=== PATIENT | female | born 1955 | race Hispanic/Latino ===

== ENCOUNTER 2023-08-20 08:44 | Emergency (ER) | payer OTHER ==
--- OUTSIDE RECORDS SUMMARY | 2023-08-20 08:46 | XMS REPORT | Continuity of Care Document ---
Author Name Unknown Address [address] [facility] [address] [place] [address] [facility] Address [address] [facility] [address] [place] [address] Care Team Providers Care Cyber Ops Planner Name Role Phone Unavailable Unavailable Unavailable Encounters Start Date/Time End Date/Time Encounter Type Admission Type Attending Clinicians Care Facility Care Department Encounter ID Source 2022-08-27 09:18:09 2022-08-27 09:18:09 Outpatient [facility] [id number] Saad Teixeira 2022-08-17 15:01:18 2022-08-17 15:01:18 Outpatient [facility] [id number] Saad Teixeira 2022-06-18 10:55:35 2022-06-18 10:55:35 Outpatient [facility] [id number] Saad Morris Puneet 2022-06-15 09:12:26 2022-06-15 09:12:26 Outpatient [facility] [id number] Saad Teixeira 2022-06-07 13:04:46 2022-06-07 13:04:46 Outpatient [facility] [id number] Saad Teixeira 2022-05-31 10:36:52 2022-05-31 10:36:52 Outpatient [facility] [id number] Saad Morris Puneet 2022-05-28 08:57:19 2022-05-28 08:57:19 Outpatient [facility] [id number] Saad Teixeira 2022-05-22 10:51:10 2022-05-22 10:51:10 Outpatient [facility] [id number] Saad Teixeira Results Test Description Test Time Test Comments Results Result Co mments Source PAP TEST, THINPREP, [id number] 10:11:01* Test Item Value Reference Range Interpretation Comme nts SOURCE: (test code = 8001) Cervical/Endo cervical SLIDES: (test code = 8011) 1 LMP: (test code = 8021) SEE NOTE POST MENOPAUSAL SPECIMEN ADEQUACY: (test code = 02914) (NOTE) Satisfactory for evaluation. Endocervical cells/transformation zone component not identified. INTERPRETATION: (test code = 87656) NILM/NO EPITH. ABNORMALITY;S EE BELOW ---- NEGATIVE FOR INTRAEPITHELIAL LESION OR MALIGNANCY (NILM) - GAMBRELER HELPER: (test code = 8101) [facility] IAC LOCATION: (test code = 14615) (NOTE) Specimens proces sed and interpreted at [facility], [address] [place] [address], , CLIA: [id number] CPT: (test code = 8140) (NOTE) 50919 UNLESS OTH ERWISE INDICATED, COMPUTER AIDED AND GAMBRELER HELPER SCREENING PERFORMED. The Pap test is a screening test with an inherent, but low probability of error. Your patient should be reminded to consult you immediately if she experiences any suspicious signs or symptoms, regardless of her Pap test result. An alternate report format containing images or consolidated prior Pap history is available as applicable. HPV HIGH RISK WITH GENOTYPE, [id number] 10:00:59* Test Item Value Reference Range Interpretation Comme nts HPV HIGH RISK INTERP (test code = 60151) NEGATIVE NEGATIVE HPV 16 (test code = 40741) NEGATIVE HPV 18 (test code = 67089) NEGATIVE HPV, HR, OTHER GENOTYPES (test code = 52290) NEGATIVE Testing methodol ogy is real-time PCR utilizing hydrolysis probes with the Joshua Amparo 4800 system. The test individually detects genotypes 16 and 18, as well as the other 12 high risk types (31,33,35,39,45,51,52,56 ,58,59,66,68). The expected result is negative. A negative result does not rule out the presence of HPV not included in the genotype set, a low level of infection or specimen sampling error. CT/NG, NAAT, [id number] 22:16:37* Test Item Value Reference Range Interpretation Comme nts GONORRHEA, NAAT (test code = 32941) NEGATIVE NEGATIVE Testing is perfo rmed with Joshua AMPARO 6800/8800 systems usingreal-time polymerase chain reaction (PCR) method. A negative result does not exclude low level infection, specimensampling error, or collection error. CHLAMYDIA, NAAT (test code = 88217) NEGATIVE NEGATIVE Testing is perfo rmed with Joshua AMPARO 6800/8800 systems usingreal-time polymerase chain reaction (PCR) method. A negative result does not exclude low level infection, specimensampling error, or collection error. TRICHOMONAS, [id number] 14:19:13* Test Item Value Reference Range Interpretation Comme nts TRICHOMONAS, NAAT (test code = 42165) NEGATIVE NEGATIVE A negative r esult does not exclude low level infection, specimensampling error, or collection error. SPECIMEN TYPE (test code = 80414) THINPREP Testing is perfo rmed with the Joshua Amparo 6800/8800 systems usingreal-time Polymerase Chain Reaction (PCR) method. [facility] has important pathology staff changes effective 06/13/2022. New pathology staff will provide uninterrupted, excellent patient care and clinical consultation. See URL: [email or web address]. UNLESS OTHERWISE INDICATED, ALL TESTING PERFORMED AT [facility] [address] [place] [address] CLIA: [id number], CAP: [id number] HIV 1/2 4TH GEN, RFLX [id number] 04:50:37* Test Item Value Reference Range Interpretation Comme nts HIV 1/2 4TH GEN, RFLX CONF ( test code = 3514) NON-REACTIVE NON-REACTIVE HEPATITIS PANEL, [id number] 04:50:37* Test Item Value Reference Range Interpretation Comme nts HEPATITIS A IgM (test code = 69910) NON-REACTIVE NON-REACTIVE HEPATITIS B CORE IgM (test code = 4644) NON-REACTIVE NON-REACTIVE HEPATITIS B SURF AG (test code = 2739) NON-REACTIVE NON-REACTIVE HEPATITIS C ANTIBODY (test code = 4675) NON-REACTIVE NON-REACTIVE INTERPRETATION HEPATITIS A: (test code = 2552) (NOTE) Hepatitis A serology shows no evidence of acute hepatitis A. INTERPRETATION HEPATITIS B: (test code = 48607) (NOTE) Hepatitis B serology shows no evidence of acute hepatitis B andno indication of exposure to hepatitis B virus in the previous elizabeth eight months. INTERPRETATION HEPATITIS C: (test code = 92082) (NOTE) Hepatitis C serology shows no evidence of exposure to hepatitisC virus at this time. It can take up to 12 months after exposure tothe hepatitis C virus for antibodies to become detectable in the blood in certain patients. [id number] 04:07:05* Test Item Value Reference Range Interpretation Comme nts RPR RESULT (test code = 3501) NON-REACTIVE NON-REACTIVE RPR TITER (test code = 3500) NOT INDIC. TITER NOT INDIC. [facility] has important pathology staff changes effective 06/13/2022. New pathology staff will provide uninterrupted, excellent patient care and clinical consultation. See URL: [email or web address]. UNLESS OTHERWISE INDICATED, ALL TESTING PERFORMED AT [facility] [address] [place] [address] CLIA: [id number], CAP: [id number]
--- NOTE | 2023-08-20 09:02 | ER ---
Nurse's Notes [facility] Name: Deena Jang Age: 68 yrs Sex: Female : 1955 Arrival Date: 08/20/2023 Time: 08:44 Bed IW1 Private MD: Diagnosis: Cutaneous abscess of back [any part, except buttock] Presentation: 08/19 08:54 Chief complaint: Patient states: she has an abscess for approx 8 days that has been ap3 draining on her mid upper back. patient also reports fevers and chills during this time. Coronavirus screen: At this time, the client does not indicate any symptoms associated with coronavirus-19. Ebola Screen: No symptoms or risks identified at this time. Initial Sepsis Screen: Does the patient meet any 2 criteria? No. Patient's initial sepsis screen is negative. Does the patient have a suspected source of infection? No. Patient's initial sepsis screen is negative. Risk Assessment: Do you want to hurt yourself or someone else? Patient reports no desire to harm self or others. Onset of symptoms is unknown. 08:54 Method Of Arrival: Ambulatory ap3 08:54 Acuity: ROBY 4 ap3 Triage Assessment: 08:56 General: Appears uncomfortable, Behavior is calm, cooperative, appropriate for age. ap3 Pain: Complains of pain in back. Neuro: Level of Consciousness is awake, alert, obeys commands, Oriented to person, place, time, situation. Cardiovascular: Patient's skin is warm and dry. Respiratory: Airway is patent Respiratory effort is even, unlabored, Respiratory pattern is regular, symmetrical. Derm: Abscess located on thoracic area. Historical: - Allergies: 08:56 Morphine; ap3 - Home Meds: 08:56 None [Active]; ap3 - PMHx: 08:56 None; ap3 - PSHx: 08:56 foot; ap3 - Immunization history:: Adult Immunizations up to date. - Infectious Disease History:: Denies. - Social history:: Smoking status: unknown. Screenin:57 Abuse screen: Denies threats or abuse. Nutritional screening: No deficits noted. ap3 Tuberculosis screening: No symptoms or risk factors identified. 09:12 [facility] ED Fall Risk Assessment (Adult) History of falling in the last 3 months, ap3 including since admission No falls in past 3 months (0 pts) Confusion or Disorientation No (0 pts) Intoxicated or Sedated No (0 pts) Impaired Gait No (0 pts) Mobility Assist Device Used No (0 pt) Altered Elimination No (0 pt) Score/Fall Risk Level 0 - 2 = Low Risk Oriented to surroundings, Maintained a safe environment, Educated pt \T\ family on fall prevention, incl call for assistance when getting out of bed, Assessed \T\ reinforced patient's understanding of fall precautions, Provided non-skid footwear, Hourly rounding (assess needs \T\ fall precautionary measures) done, Used ambulatory aids as needed (educated on \T\ assisted with), Used gait belt as appropriate. Vital Signs: 08:54 BP 137 / 67; Pulse 72; Resp 18; Pulse Ox 97% ; Weight 72.57 kg; Height 4 ft. 11 in. ; ap3 08:54 Body Mass Index 32.32 (72.57 kg, 149.86 cm) ap3 ED Course: 08:47 Patient arrived in ED. im 08:48 Lennox Hamm MD is Attending Physician. ec2 08:56 Triage completed. ap3 08:57 Arm band placed on left wrist. ap3 08:57 Patient has correct armband on for positive identification. Bed in low position. Call ap3 light in reach. Side rails up X 1. Adult w/ patient. Provided Education on: wound care. Pulse ox on. NIBP on. 09:11 No provider procedures requiring assistance completed. Patient did not have IV access ap3 during this emergency room visit. Administered Medications: No medications were administered Medication: 09:12 VIS not applicable for this client. ap3 Outcome: 09:02 Discharge ordered by . ec2 09:12 Discharged to home ambulatory, ap3 09:12 Condition: good 09:12 Discharge instructions given to patient, Instructed on discharge instructions, follow up and referral plans. Demonstrated understanding of instructions, follow-up care, medications, Prescriptions given X 1, 09:12 Patient left the ED. ap3 Signatures: Carol Randle RN RN ap3 Meli Fuentes Lennox Hamm MD MD ec2
--- NOTE | 2023-08-20 09:02 | EDPHYS ---
Physician Documentation [facility] Name: Deena Jang Age: 68 yrs Sex: Female : 1955 Arrival Date: 08/20/2023 Time: 08:44 Bed IW1 Private MD: ED Physician Lennox Hamm HPI: 08/19 09:03 This 68 yrs old Female presents to ER via Ambulatory with complaints of ec2 Abscess - on back. 09:03 Patient arrives today due to concern for drainage from her right mid upper back. ec2 Patient reports that she has been having some drainage from that area. Patient is concerned about an abscess. Patient reports no systemic symptoms, denies any fevers or chills, nausea or vomiting.. Historical: - Allergies: 08:56 Morphine; ap3 - Home Meds: 08:56 None [Active]; ap3 - PMHx: 08:56 None; ap3 - PSHx: 08:56 foot; ap3 - Immunization history:: Adult Immunizations up to date. - Infectious Disease History:: Denies. - Social history:: Smoking status: unknown. ROS: 09:03 Constitutional: as per hpi ec2 Exam: 09:03 Constitutional: GEN: NAD Head: atraumatic Eyes: EOMI Ears: External ears are ec2 normal. CV: regular rate LUNGS: no respiratory distress ABD: non-distended SKIN: Large abscess present to the right upper back. Open, drainage noted. MSK: no evidence of trauma NEURO: moves all extremities equally Vital Signs: 08:54 BP 137 / 67; Pulse 72; Resp 18; Pulse Ox 97% ; Weight 72.57 kg; Height 4 ft. 11 in. ; ap3 08:54 Body Mass Index 32.32 (72.57 kg, 149.86 cm) ap3 MDM: 08:48 Patient medically screened. ec2 09:03 Data reviewed: vital signs. ED course: Patient arrives today due to concern for abscess ec2 to the right upper back. Examination remarkable for abscess as noted above. I was able to express significant amount of pus from the area. Patient otherwise systemically well-appearing in no acute distress with reassuring hemodynamics. Will forego obtaining any lab work such as CBC or BMP. Additionally doubt deep space infection, will defer any CT imaging. Will start patient on Bactrim, have the patient follow-up primary care doctor and return as needed.. Administered Medications: No medications were administered Disposition Summary: 08/20/23 09:02 Discharge Ordered Notes: Location: Home ec2 Condition: Stable ec2 Diagnosis - Cutaneous abscess of back [any part, except buttock] ec2 Followup: ec2 - With: Private Physician - When: - Reason: Recheck today's complaints Discharge Instructions: - Discharge Summary Sheet ec2 - Skin Abscess, [id number] ec2 Forms: - Medication Reconciliation Form ec2 - Antibiotic Education ec2 - Prescription Opioid Use ec2 - Patient Portal Instructions ec2 - Leadership Thank You Letter ec2 Prescriptions: - Bactrim DS 800-160 mg Oral Tablet - take 1 tablet ORAL route every 12 hours for 7 days; 14 tablet; Refills: 0, ec2 Product Selection Permitted Signatures: Carol Randle RN RN ap3 Lennox Hamm MD MD ec2
[2023-08-20 09:27] VITALS: BP 137/67; O2SAT 97
== END 2023-08-20 09:12 | disposition home or self-care (01) ==
LOC: ER 08:44
DX: L02.212 Cutaneous abscess of back [any part, except buttock and flank] (principal); Z88.5 Allergy status to narcotic agent

== ENCOUNTER 2024-11-11 14:52 | Inpatient (IN) | payer OTHER ==
[2024-11-11] MEDS ORDERED: ONDANSETRON 4 MG/2 ML VIAL ONE (15:18)
[2024-11-11] MEDS ORDERED: NA CHLORIDE 0.9% 1,000 ML ONE (15:18)
[2024-11-11 15:39] LABS: Absolute Lymphocytes (CBC) 0.5 K/uL (0.7-4.9); Hematocrit 45.4 % (36.0-45.0); Hemoglobin 15.5 g/dL (12.0-15.0); MCH 29.9 pg (27.0-35.0); MCHC 34.2 g/dL (32.0-36.0); MCV 87.6 fL (80-100); MPV 10.4 fL (7.6-11.3); Nucleated RBC Absolute Count 0.0 (0-0); Nucleated Red Blood Cells % 0.0 % (0-0); RBC Red Blood Cell Count 5.19 M/uL (3.86-4.86); White Blood Count 13.10 thou/uL (4.3-10.9)
[2024-11-11 15:46] LABS: SARS-CoV-2 Antigen Rapid Res Negative (Negative)
[2024-11-11 15:56] LABS: ALT/SGPT 149.0 U/L (13-56); AST/SGOT 271.0 U/L (15-37); Albumin 2.9 g/dL (3.4-5.0); Albumin/Globulin Ratio 0.5 (1.1-1.8); Alkaline Phosphatase 138.0 U/L (45-117); Anion Gap 15.3 mEq/L (5.0-15.0); BUN Blood Urea Nitrogen 27.0 mg/dL (7-18); Globulin 5.5 g/dL (2.3-3.5); Glucose Level 152.0 mg/dL (74-106); Lipase 75.0 U/L (13-75); Potassium 3.3 mEq/L (3.5-5.1)
[2024-11-11 16:28] LABS: Blood Morphology Comment NOT SEEN (NOT SEEN); White Blood Cell Scan OK (OK)
--- NOTE | 2024-11-11 16:52 | RAD REPORT ---
EXAMINATION: US Abdomen Exam Limited CLINICAL HISTORY: [facility] MAIN Y ABD PAIN Bed Name: 13 COMPARISON: None. TECHNIQUE: Limited upper abdominal grayscale and color flow sonographic images. FINDINGS: Gallbladder: Gallbladder is somewhat decompressed limiting evaluation. Echogenic shadowing calculi pr edominantly at the neck. Wall appears mildly thickened, 4 mm in thickness. No pericholecystic fluid. Negative sonographic Owens sign. Bile ducts: No intrahepatic or extrahepatic biliary dilatation. Common bile duct measures 3 mm. Liver: Visualized portions of the liver demonstrate normal echogenicity with no suspicious findings. Fluid: No ascites. IMPRESSION: Cholelithiasis and mild wall thickening although suboptimal distention limits evaluation. No other fi ndings to suggest acute cholecystitis.
[2024-11-11 17:42] LABS: Urine Crystals Unidentified Few /HPF (None Seen); Urine Culture Reflex Order REFLEXED; Urine Microscopic Reflex YN ORDER UMIC; Urine WBC Clump Occasional /HPF (None Seen); Urine Yeast (Budding) Few /HPF (None Seen)
--- NOTE | 2024-11-11 17:54 | ER ---
Nurse's Notes [facility] Name: Deena Jang Age: 69 yrs Sex: Female : 1955 Arrival Date: 11/11/2024 Time: 14:52 Bed 13 Private MD: Diagnosis: Other cholelithiasis without obstruction;Acute cholecystitis;Abnormal results of liver function studies Presentation: 11/11 14:58 Chief complaint: EMS states: toned out for a patient that doesn't feel well. c/o me1 abdominal pain, n/v/d and fever. Daughter walked in room during triage and noticed a rash to torso that wasn't there captain of guards. Red, raised rash to torso and starting to go down thighs. Coronavirus screen: Vaccine status: Patient reports being unvaccinated. Ebola Screen: No symptoms or risks identified at this time. Initial Sepsis Screen: Does the patient meet any 2 criteria? HR > 90 bpm. Does the patient have a suspected source of infection? No. Patient's initial sepsis screen is negative. Risk Assessment: Do you want to hurt yourself or someone else? Patient reports no desire to harm self or others. Onset of symptoms is unknown. 14:58 Method Of Arrival: EMS: [facility] sd1 14:58 Acuity: ROBY 3 me1 Triage Assessment: 15:01 General: Appears in no apparent distress. Behavior is calm, cooperative, appropriate me1 for age. Pain: Complains of pain in abdomen Pain does not radiate. Pain currently is 6 out of 10 on a pain scale. Quality of pain is described as crampy, Pain began gradually, Is continuous. EENT: No signs and/or symptoms were reported regarding the EENT system. Neuro: Level of Consciousness is awake, alert, obeys commands, Oriented to person, place, time, situation, Appropriate for age. Cardiovascular: Patient's skin is warm and dry. Respiratory: Airway is patent Respiratory effort is even, unlabored, Respiratory pattern is regular, symmetrical. GI: Abdomen is non-distended, Reports lower abdominal pain, upper abdominal pain, diarrhea, nausea, vomiting. : No signs and/or symptoms were reported regarding the genitourinary system. Derm: Skin is healthy with good turgor, Skin is normal, Rash noted that is red, raised, on chest, abdomen and pelvis. Musculoskeletal: No signs and/or symptoms reported regarding the musculoskeletal system. Historical: - Allergies: 15:01 Morphine; me1 - PMHx: 15:01 None; me1 - PSHx: 15:01 foot; me1 - Immunization history:: Adult Immunizations unknown. - Infectious Disease History:: Denies. - Social history:: Smoking status: Patient denies any tobacco usage or history of. Screenin:04 [facility] ED Fall Risk Assessment (Adult) History of falling in the last 3 months, me1 including since admission No falls in past 3 months (0 pts) Confusion or Disorientation No (0 pts) Intoxicated or Sedated No (0 pts) Impaired Gait No (0 pts) Mobility Assist Device Used No (0 pt) Altered Elimination No (0 pt) Score/Fall Risk Level 0 - 2 = Low Risk Maintained a safe environment, Provided non-skid footwear, Hourly rounding (assess needs \T\ fall precautionary measures) done. Abuse screen: Denies threats or abuse. Nutritional screening: No deficits noted. Tuberculosis screening: No symptoms or risk factors identified. Assessment: 15:04 General: See triage assessment. me1 16:38 General: placed purewick to get urine specimen, Patient's periarea is red and painful me1 with pericare as she hasnt been able to get herself clean. Patient lives alone and has been bed bound due to weakness from this illness per her friend. . 19:01 Reassessment: Patient received in bed asking to go home, she is alert and oriented x2, tb4 denies pain 0/10. General: Appears comfortable, Behavior is calm, cooperative. Pain: Denies pain. Neuro: No deficits noted. Level of Consciousness is awake, alert, obeys commands, Oriented to person, place, Gas Pumper are equal bilaterally Moves all extremities. Full function Weakness in bilateral leg(s) Gait is unsteady, Speech is normal, Facial symmetry appears normal. Respiratory: No deficits noted. Airway is patent Trachea midline Respiratory effort is even, unlabored, Respiratory pattern is regular, symmetrical. GI: Bowel sounds present X 4 quads. Abd is soft X 4 quads Abd is non tender Reports nausea, vomiting. Vital Signs: 14:58 BP 119 / 68; Pulse 96; Resp 17; Temp 98.3; Pulse Ox 100% ; Weight 63.5 kg; Height 4 ft. me1 11 in. ; Pain 6/10; 15:00 BP 125 / 72; Pulse 95; Resp 15; Pulse Ox 99% ; me1 16:00 BP 133 / 55; Pulse 84; Resp 14; Pulse Ox 99% ; me1 17:00 BP 120 / 49; Pulse 81; Resp 16; Pulse Ox 99% ; me1 19:17 BP 125 / 64; Pulse 73; Resp 18; Temp 98.4; Pulse Ox 99% on R/A; Pain 0/10; tb4 19:30 BP 127 / 88; Pulse 76; Resp 19; Pulse Ox 97% on R/A; Pain 0/10; tb4 20:45 BP 128 / 74; Pulse 70; Resp 18; Pulse Ox 99% on R/A; Pain 0/10; tb4 14:58 Body Mass Index 28.28 (63.50 kg, 149.86 cm) me1 14:58 Pain Scale: Adult me1 19:17 Pain Scale: Adult tb4 19:30 Pain Scale: Adult tb4 20:45 Pain Scale: Adult tb4 ED Course: 14:54 Patient arrived in ED. me1 14:55 Ana Rehman FNP-C is PHCP. kb 14:55 Prashanth Worrell MD is Attending Physician. kb 15:01 Triage completed. me1 15:01 Arm band placed on Patient placed in an exam room. me1 15:04 Patient has correct armband on for positive identification. Bed in low position. Call [facility] light in reach. Side rails up X2. Provided Education on: POC. Verbalized understanding.. Client placed on continuous cardiac and pulse oximetry monitoring. NIBP monitoring applied. Pulse ox on. NIBP on. 15:04 No provider procedures requiring assistance completed. me1 15:16 Karla Rothman, RN is Primary Nurse. me1 15:28 Initial lab(s) drawn, by sd, sent to lab. Inserted saline lock: 22 gauge in right sd1 antecubital area, using aseptic technique. 15:29 CBC with Diff Sent. me1 15:29 CMP Sent. me1 15:29 Lipase Sent. me1 15:29 [place] Screen Profile Sent. me1 15:29 Group A Streptococcus Rapid Sent. me1 15:30 COVID swab sent to lab. Strep swab sent to lab. me1 16:18 US Abdomen Limited In Process Unspecified. EDMS 17:34 UA Rfx Devyn Cult if indicated Sent. me1 17:34 Urine collected: clean catch specimen, cloudy, tea colored. me1 17:54 Perez Rhoades MD is Hospitalizing Provider. kb 18:07 Blood Culture Adult (2) Sent. me1 18:07 Lactate w/ 2H reflex if indic. Sent. me1 19:17 Warm blanket given. tb4 Administered Medications: 15:29 Drug: Ondansetron IVP 4 mg IVP once; over 2 minutes Route: IVP; Site: right antecubital;me1 17:06 Follow up: Response: No adverse reaction; Nausea is decreased me1 15:29 Drug: NS 0.9% IV 1000 ml IV at 1 bolus Per protocol; to be given as a bolus over 60 me1 minutes Route: IV; Rate: 1 bolus; Site: right antecubital; 17:06 Follow up: Response: No adverse reaction; IV Status: Completed infusion; IV Intake: me1 1000ml 18:13 Drug: Piperacillin-Tazobactam IVPB 3.375 grams IVPB once over 60 mins; (mix in NS 100 me1 mL) Route: IVPB; Infused Over: 60 mins; Site: right antecubital; 19:07 Follow up: Response: No adverse reaction; IV Status: Completed infusion me1 Medication: 15:04 VIS not applicable for this client. me1 Intake: 17:06 IV: 1000ml; Total: 1000ml. me1 Outcome: 17:54 Decision to Hospitalize by Provider. kb 21:41 Patient left the ED. tb4 Signatures: Dispatcher [employer] Ana Singh, MIRYAM-C SAMPLE WORKER-Karla Tang, RN RN me1 Divina Campuzano, RN RN tb4
--- NOTE | 2024-11-11 17:54 | EDPHYS ---
Physician Documentation [facility] Name: Deena Jang Age: 69 yrs Sex: Female : 1955 Arrival Date: 11/11/2024 Time: 14:52 Bed 13 Private MD: ED Physician Prashanth Worrell HPI: 11/11 15:32 This 69 yrs old Female presents to ER via EMS with complaints of Abdominal kb Pain, Nausea/Vomiting/Diarrhea, Rash. 15:32 Pt is a 69 year old female who presents for diarrhea, fever, malaise, weakness, sore kb throat and bodyaches that started one week ago. States symptoms got worse today. Pt was seen here and given prescription for Augmentin, but symptoms aren't improving. . Historical: - Allergies: 15:01 Morphine; me1 - PMHx: 15:01 None; me1 - PSHx: 15:01 foot; me1 - Immunization history:: Adult Immunizations unknown. - Infectious Disease History:: Denies. - Social history:: Smoking status: Patient denies any tobacco usage or history of. ROS: 15:14 Constitutional: As per HPI kb Exam: 15:31 Constitutional: This is a well developed, well nourished patient who is awake, alert, kb and in no acute distress. Head/Face: Normocephalic, atraumatic. ENT: Moist Mucous membranes Cardiovascular: Regular rate Respiratory: Respirations even and unlabored. No increased work of breathing. Talking in full sentences MS/ Extremity: Pulses equal, no cyanosis. Neurovascular intact. Full, normal range of motion. Neuro: Awake and alert, GCS 15, oriented to person, place, time, and situation. 15:31 Abdomen/GI: Inspection: abdomen appears normal, Bowel sounds: normal, Palpation: soft, in all quadrants, mild abdominal tenderness, in all quadrants, 15:31 Skin: rash a mild rash is noted, rash can be described as nonspecific, on the abdomen, right leg and left leg, Vital Signs: 14:58 BP 119 / 68; Pulse 96; Resp 17; Temp 98.3; Pulse Ox 100% ; Weight 63.5 kg; Height 4 ft. me1 11 in. ; Pain 6/10; 15:00 BP 125 / 72; Pulse 95; Resp 15; Pulse Ox 99% ; me1 16:00 BP 133 / 55; Pulse 84; Resp 14; Pulse Ox 99% ; me1 17:00 BP 120 / 49; Pulse 81; Resp 16; Pulse Ox 99% ; me1 19:17 BP 125 / 64; Pulse 73; Resp 18; Temp 98.4; Pulse Ox 99% on R/A; Pain 0/10; tb4 19:30 BP 127 / 88; Pulse 76; Resp 19; Pulse Ox 97% on R/A; Pain 0/10; tb4 20:45 BP 128 / 74; Pulse 70; Resp 18; Pulse Ox 99% on R/A; Pain 0/10; tb4 14:58 Body Mass Index 28.28 (63.50 kg, 149.86 cm) me1 14:58 Pain Scale: Adult me1 19:17 Pain Scale: Adult tb4 19:30 Pain Scale: Adult tb4 20:45 Pain Scale: Adult tb4 MDM: 14:55 Medical Screening Exam initiated kb 15:32 Data reviewed: vital signs, nurses notes. kb 17:01 Consideration of Admission/Observation Patient was admitted/placed on observation. kb Escalation of care including admission/observation considered. Management of patient was discussed with the following: Drum Worker: Dr Young accepts pt for consult if GI is available. Wants MRCP ordered now, NPO and zosyn started. Call placed to Dr Crespo, message left. . 17:24 Management of patient was discussed with the following: Drum Worker: Attempted to kb consult Dr Crespo a second time, no answer. 17:49 Differential diagnosis: cholecystitis, Cholelithiasis, non-specific abd pain, kb pancreatitis. Management of patient was discussed with the following: Drum Worker: Dr Crespo accepts pt for consult. Management of patient was discussed with the following: Hospitalist: Dr Rhoades accepts pt for admission. Counseling: I had a detailed discussion with the patient and/or guardian regarding the historical points, exam findings, and any diagnostic results supporting the discharge/admit diagnosis, lab results, radiology results, the need for further work-up and treatment in the hospital. 11/11 14:58 Order name: SARS-COV-2 Antigen Rapid; Complete Time: 15:49 kb 11/11 14:58 Order name: CBC with Diff; Complete Time: 16:29 kb 11/11 14:58 Order name: CMP; Complete Time: 15:56 kb 11/11 14:58 Order name: Lipase; Complete Time: 15:56 kb 11/11 14:58 Order name: UA Rfx Devyn Cult if indicated; Complete Time: 17:47 kb 11/11 14:58 Order name: Group A Streptococcus Rapid; Complete Time: 16:47 kb 11/11 15:03 Order name: [place] Screen Profile; Complete Time: 16:06 kb 11/11 15:48 Order name: CBC Smear Scan; Complete Time: 16:29 EDMS 11/11 16:38 Order name: Throat Culture EDMS 11/11 17:01 Order name: Blood Culture Adult (2) kb 11/11 17:01 Order name: Lactate w/ 2H reflex if indic.; Complete Time: 18:18 kb 11/11 17:01 Order name: Protime (+inr); Complete Time: 18:11 kb 11/11 17:01 Order name: Ptt, Activated; Complete Time: 18:11 kb 11/11 17:46 Order name: Urine Culture EDMS 11/11 18:21 Order name: Ghost Lactate-NO COLLECT Timer EDMS 11/11 18:35 Order name: CBC with Automated Diff EDMS 11/11 18:35 Order name: CBC with Automated Diff EDMS 11/11 18:35 Order name: Comprehensive Metabolic Panel EDMS 11/11 18:35 Order name: Comprehensive Metabolic Panel EDMS 11/11 15:57 Order name: US Abdomen Limited; Complete Time: 16:55 kb 11/11 17:01 Order name: Cholangiogram EDMS 11/11 14:58 Order name: IV Saline Lock; Complete Time: 15:29 kb 11/11 14:58 Order name: Labs collected and sent; Complete Time: 15:29 kb Administered Medications: 15:29 Drug: Ondansetron IVP 4 mg IVP once; over 2 minutes Route: IVP; Site: right antecubital;me1 17:06 Follow up: Response: No adverse reaction; Nausea is decreased me1 15:29 Drug: NS 0.9% IV 1000 ml IV at 1 bolus Per protocol; to be given as a bolus over 60 me1 minutes Route: IV; Rate: 1 bolus; Site: right antecubital; 17:06 Follow up: Response: No adverse reaction; IV Status: Completed infusion; IV Intake: me1 1000ml 18:13 Drug: Piperacillin-Tazobactam IVPB 3.375 grams IVPB once over 60 mins; (mix in NS 100 me1 mL) Route: IVPB; Infused Over: 60 mins; Site: right antecubital; 19:07 Follow up: Response: No adverse reaction; IV Status: Completed infusion me1 Disposition Summary: 11/11/24 17:54 Hospitalization Ordered Notes: Hospitalization Status: Observation kb Provider: Perez Rhoades Location: Telemetry/MedSurg (observation) kb Condition: Stable kb Problem: new kb Symptoms: are unchanged kb Bed/Room Type: Standard Room Assignment: 409(11/11/24 19:04) ss Diagnosis - Other cholelithiasis without obstruction kb - Acute cholecystitis kb - Abnormal results of liver function studies kb Forms: - Medication Reconciliation Form kb - SBAR form kb - Leadership Thank You Letter kb Addendum: 11/13/2024 00:21 Co-signature as Attending Physician, Prashanth Worrell MD I reviewed the patient's care r n provided by the Advanced Practice Provider and agree with the diagnosis and treatment plan. Signatures: Dispatcher [employer] EDMS Ana Rehman, TOMBSTONE SETTER-C TOMBSTONE SETTER-Ckb Prashanth Worrell MD MD rn Blanchard, Shelby, RN RN ss Karla Rothman RN RN me1 Corrections: (The following items were deleted from the chart) 11/11 14:59 14:59 SARS-COV-2 Antigen Rapid+I.LAB.BRZ ordered. EDMS EDMS 14:59 14:59 CBC+H.LAB.BRZ ordered. EDMS EDMS 14:59 14:59 COMPREHENSIVE METABOLIC PANEL+C.LAB.BRZ ordered. EDMS EDMS 14:59 14:59 LIPASE+C.LAB.BRZ ordered. EDMS EDMS 14:59 14:59 UA Rfx Devyn Cult if indicated+U.LAB.BRZ ordered. EDMS EDMS 14:59 14:59 Group A Streptococcus Rapid Sc+I.LAB.BRZ ordered. EDMS EDMS 19:04 17:54 kb ss
[2024-11-11] MEDS ORDERED: NA CHLORIDE 0.9% 100 ML ONE (18:05)
[2024-11-11] MEDS ORDERED: PIPERACIL/TAZO 3.375 GM VIAL IV ONE (18:05)
[2024-11-11 18:07] LABS: PT Prothrombin Time 13.9 SECONDS (10-13.0); PTT, Activated Partial Thromb 26.2 SECONDS (27.2-37.4); Protime INR 1.24
[2024-11-11] MEDS ORDERED: ONDANSETRON 4 MG/2 ML VIAL IV PRN (18:30)
[2024-11-11] MEDS: NA CHLORIDE 0.9% 1,000 ML IV SCH (19:00)
[2024-11-11] MEDS ORDERED: KETOROLAC 30 MG/ML INJ IV PRN (20:13)
--- NOTE | 2024-11-11 20:17 | P.HP ---
Certification for Inpatient Patient admitted to: Inpatient With expected LOS: >2 Midnights Practitioner: I am a practitioner with admitting privileges, knowledge of patient current condition, hospital course, and medical plan of care. Services: Services provided to patient in accordance with Admission requirements found in Title 42 Section 412.3 of the Code of Federal Regulations Patient History Date of Service: 11/12/24 Reason for admission: Abdominal pain History of Present Illness: 69 yrs old Female with no significant past medical history came to ER with abdominal pain started 1 week ago. Complains of pain in the epigastric region and also radiating to right upper quadrant, sharp pain, 6 out of 10 in severity at the time of interview. Associated with diarrhea body pain nausea and vomiting. Patient also had subjective fever. Patient was initially seen in the ER and was treated with Augmentin but was not improving and was brought to ER again. Patient was assessed in the ER and was found to have elevated LFTs and was admitted for further management of cholelithiasis and acute cholecystitis Allergies morphine Allergy (Unknown, Verified 12/13/11 16:21) Hives/Rash Home Medications: NK [No Home Meds] 11/11/24 - Past Medical/Surgical History Past Medical History: Reviewed- Non-Contributory Past Surgical History: Reviewed- Non-Contributory - Family History Family History: Reviewed- Non-Contributory - Social History Smoking Status: Never smoker Review of Systems 10-point ROS is otherwise unremarkable Physical Examination - Vital Signs Temperature: 97.5 F Blood Pressure: 109/63 Pulse: 95 Respirations: 19 Pulse Ox (%): 94 - Physical Exam General: Alert, Oriented x3, Cooperative HEENT: Atraumatic, Normocephalic Neck: Supple, No Thyromegaly Respiratory: Clear to auscultation bilaterally, Normal air movement Cardiovascular: Regular rate/rhythm, Normal S1 S2 Capillary refill: <2 Seconds Gastrointestinal: Soft and benign, W/out hepatosplenomegaly, Tenderness Musculoskeletal: No clubbing, No swelling Integumentary: No rashes, No breakdown Neurological: Other (Alert awake nonfocal) Lymphatics: No axilla or inguinal lymphadenopathy - Studies Laboratory Data (last 24 hrs) 11/11/24 11/11/24 11/11/24 17:45 15:24 15:24 WBC 13.10 H Hgb 15.5 H Hct 45.4 H Plt Count 176 PT 13.9 H INR 1.24 APTT 26.2 L Sodium 135 L Potassium 3.3 L BUN 27 H Creatinine 1.18 H Glucose 152 H Total Bilirubin 0.7 AST 271 H ALT 149 H Alkaline Phosphatase 138 H Lipase 75 Assessment and Plan - Plan Sepsis Lactic acidosis Elevated LFTs Started on IV hydration Will start on antibiotics Will obtain cultures Change antibiotic as per sensitivity Will get MRCP Acute cholecystitis Pain control Started on IV antibiotic Surgical consult GI consulted as well Hyponatremia Hypokalemia Acute kidney injury Renal parameters monitor and replace accordingly UTI Continue antibiotics GI/DVT prophylaxis Advance directive full code Discharge Plan: Home Plan to discharge in: 48 Hours - Advance Directives Does patient have a Living Will: No Does patient have a Durable POA for Healthcare: No - Code Status/Comfort Care Code Status: Full Code Time Spent Managing Pts Care (In Minutes): 48
[2024-11-11 22:38] VITALS: BMI 28.0
[2024-11-12] MEDS: PIPER TAZO 3.375 GM in NA CHLORIDE 0.9% 100 ML IV SCH (00:03)
[2024-11-12 05:54] LABS: Absolute Lymphocytes (CBC) 0.9 K/uL (0.7-4.9); Hematocrit 37.5 % (36.0-45.0); Hemoglobin 12.9 g/dL (12.0-15.0); MCH 30.2 pg (27.0-35.0); MCHC 34.5 g/dL (32.0-36.0); MCV 87.4 fL (80-100); MPV 10.4 fL (7.6-11.3); Nucleated RBC Absolute Count 0.0 (0-0); Nucleated Red Blood Cells % 0.0 % (0-0); RBC Red Blood Cell Count 4.29 M/uL (3.86-4.86); White Blood Count 13.60 thou/uL (4.3-10.9)
[2024-11-12 06:12] LABS: ALT/SGPT 119.0 U/L (13-56); AST/SGOT 212.0 U/L (15-37); Albumin 2.2 g/dL (3.4-5.0); Albumin/Globulin Ratio 0.5 (1.1-1.8); Alkaline Phosphatase 128.0 U/L (45-117); Anion Gap 9.3 mEq/L (5.0-15.0); BUN Blood Urea Nitrogen 24.0 mg/dL (7-18); Globulin 4.3 g/dL (2.3-3.5); Glucose Level 121.0 mg/dL (74-106); Potassium 3.3 mEq/L (3.5-5.1)
--- NOTE | 2024-11-12 07:03 | P.PN ---
Date of Service: 11/12/24 Subjective: Kenyan-speaking female. Seen at bedside. She is eating breakfast this morning. We discussed with the nursing staff that she should have been n.p.o. for MRI. She is otherwise feeling well. She endorses some mild abdominal pain. Denies fevers. Review of Systems 10-point ROS is otherwise unremarkable Physical Examination - Vital Signs Temperature: 97.5 F Blood Pressure: 109/63 Pulse: 95 Respirations: 19 Pulse Ox (%): 94 - Physical Exam General: Alert, Oriented x3, Cooperative HEENT: Atraumatic, Normocephalic Neck: Supple, No Thyromegaly Respiratory: Clear to auscultation bilaterally, Normal air movement Cardiovascular: Regular rate/rhythm, Normal S1 S2 Capillary refill: <2 Seconds Gastrointestinal: Soft and benign, W/out hepatosplenomegaly, Tenderness Musculoskeletal: No clubbing, No swelling Integumentary: No rashes, No breakdown Neurological: Other (Alert awake nonfocal) Lymphatics: No axilla or inguinal lymphadenopathy - Studies Laboratory Data (last 24 hrs) 11/11/24 11/11/24 11/11/24 17:45 15:24 15:24 WBC 13.10 H Hgb 15.5 H Hct 45.4 H Plt Count 176 PT 13.9 H INR 1.24 APTT 26.2 L Sodium 135 L Potassium 3.3 L BUN 27 H Creatinine 1.18 H Glucose 152 H Total Bilirubin 0.7 AST 271 H ALT 149 H Alkaline Phosphatase 138 H Lipase 75 Assessment and Plan - Plan Sepsis present on admission UTI Lactic acidosis LFTs trending downward Started on IV hydration Continue Zosyn Blood cultures pending Change antibiotic as per sensitivity MRCP with cholelithiasis without pathologic biliary tree abnormality Acute cholecystitis Pain control Started on IV antibiotic Surgical consult GI consulted as well Hyponatremia Hypokalemia Acute kidney injury Renal parameters monitor and replace accordingly UTI Continue antibiotics GI/DVT prophylaxis Advance directive full code Discharge Plan: Home Plan to discharge in: 48 Hours - Advance Directives Does patient have a Living Will: No Does patient have a Durable POA for Healthcare: No - Code Status/Comfort Care Code Status: Full Code Time spent on the encounter, including patient evaluation, history taking, physical exam, medical decision making, coordination of care, and documentation, was 45 minutes. Time includes direct [id number] interaction with the patient and indirect time spent reviewing records, ordering tests, and discussing the care plan.
[2024-11-12] MEDS: POTASSIUM 25 MEQ EFFERV TAB PO ONE (09:42)
[2024-11-12] MEDS: LORazepam 2 MG/ML VIAL ONE (13:03)
[2024-11-12] MEDS: LORazepam 2 MG/ML VIAL IV ONE (13:05)
--- NOTE | 2024-11-12 14:53 | RAD REPORT ---
EXAMINATION: MR CHOLANGIOGRAM CLINICAL INDICATION: Female, 69 years old. abdominal pain TECHNIQUE: Multiplanar, multisequence MR imaging of the abdomen without intravenous contrast, and wit h specific attention to the biliary system. Unless otherwise specified, incidental findings do not require dedicated imaging follow-up. 3D MIP reconstruction performed. COMPARISON: 11/11/2024 FINDINGS: GALLBLADDER: Cholelithiasis. BILE DUCTS: No biliary ductal dilatation. LIVER: Normal in size, contour, and signal without evidence of fatty infiltration or iron deposition. No gross focal lesion. PANCREAS: Normal signal. No mass, ductal dilation, or marita-pancreatic fluid. LYMPH NODES: No lymphadenopathy. ADDITIONAL FINDINGS: No free fluid collections. IMPRESSION: Cholelithiasis without pathologic biliary tree abnormality.
[2024-11-13 09:20] LABS: Absolute Lymphocytes (CBC) 0.5 K/uL (0.7-4.9); Hematocrit 36.9 % (36.0-45.0); Hemoglobin 12.5 g/dL (12.0-15.0); MCH 30.0 pg (27.0-35.0); MCHC 33.8 g/dL (32.0-36.0); MCV 88.6 fL (80-100); MPV 10.8 fL (7.6-11.3); Nucleated RBC Absolute Count 0.0 (0-0); Nucleated Red Blood Cells % 0.0 % (0-0); RBC Red Blood Cell Count 4.17 M/uL (3.86-4.86); White Blood Count 13.60 thou/uL (4.3-10.9)
[2024-11-13 09:42] LABS: ALT/SGPT 100.0 U/L (13-56); AST/SGOT 185.0 U/L (15-37); Albumin 1.9 g/dL (3.4-5.0); Albumin/Globulin Ratio 0.5 (1.1-1.8); Alkaline Phosphatase 129.0 U/L (45-117); Anion Gap 10.4 mEq/L (5.0-15.0); BUN Blood Urea Nitrogen 21.0 mg/dL (7-18); Globulin 4.0 g/dL (2.3-3.5); Glucose Level 101.0 mg/dL (74-106); Magnesium 2.3 mg/dL (1.6-2.4); Potassium 3.4 mEq/L (3.5-5.1)
[2024-11-13] MEDS: POTASSIUM CL SA 10 MEQ TAB PO ONE (09:50)
--- NOTE | 2024-11-13 13:19 | P.PN ---
Date of Service: 11/13/24 Patient is a 69-year-old woman who presented the hospital with abdominal pain and possible cholecystitis. She ultimately ate yesterday at breakfast despite being NPO. She states she was pain-free and wanted to eat therefore she did. At the time my examination she had no pain and denied any tenderness on exam. She does complain of some weakness in her legs which has been going on for 3 weeks which is not related she believes. Today she continues to have no pain tolerating diet and feeling well. On exam I do find that she has some mild tenderness globally including the left lower quadrant left upper quadrant right upper quadrant and right lower quadrant there does not seem to be a focality to it. - I have discussed that the patient is having a medical workup for her weakness and I have discussed surgical intervention including a laparoscopic cholecystectomy with indocyanine green cholangiography. Patient states however she does not want any surgical intervention for her gallbladder at this time and refuses any consideration of surgery. She states that because she feels well she does not believe she needs any kind of surgery of her gallbladder despite the findings and recommendations by myself and other providers. Therefore I will sign off at this time and remain available should she reconsider and consid er surgical intervention. I have explained the risk with alternatives to this with an fish processor in the room and patient displayed understanding above-stated plan. She continues to refuse surgery and I instructed I will remain available should she reconsider.
--- NOTE | 2024-11-13 14:03 | RAD REPORT ---
EXAM: CT brain without contrast HISTORY: weakness COMPARISON: None TECHNIQUE: Multiple contiguous axial images were obtained and a CT of the brain without contrast. Sag ittal and coronal reformats were performed. One or more of the following dose reduction techniques were used: Automated exposure control, adjust ment of the mA and/or kV according to patient size, and/or iterative reconstruction. FINDINGS: No evidence of hydrocephalus, intracranial hemorrhage, or extra-axial fluid collection. The brain is normal in morphology. Calcification along the posterior falx. No evidence of midline sh ift or areas of brain edema. The calvarium is intact. The visualized paranasal sinuses and mastoid air cells are essentially clear . IMPRESSION: No evidence of acute intracranial abnormality.
--- NOTE | 2024-11-13 14:22 | P.PN ---
Subjective Date of Service: 11/13/24 Chief Complaint: Abdominal pain Subjective: No new changes, Other (Patient is declining surgery. She appears slightly confused and very weak. There is a concern for delirium due to ongoing severe sepsis from cholecystitis. Patient's sister is adamant about convincing patient proceed with surgery. Planning to speak with them at bedside. CT head negative) Physical Examination - Vital Signs Temperature: 97.5 F Blood Pressure: 116/49 Pulse: 93 Respirations: 18 Pulse Ox (%): 96 - Physical Exam General: Confused HEENT: Atraumatic, Normocephalic Respiratory: Normal air movement, Diminished Cardiovascular: No edema, Normal pulses, Regular rate/rhythm, Normal S1 S2 Gastrointestinal: Soft and benign, Non-distended, Tenderness Assessment And Plan - Plan Assessment Patient is a 69-year-old female previously functional and independent in all her ADLs. She was admitted after she presented with abdominal pain. Workup revealed acute cholecystitis. Patient met criteria for severe sepsis as evidenced by metabolic encephalopathy, lactic acidosis and leukocytosis. She has been experiencing functional decline recently given ongoing illness. She also has gram-negative isolate from her urine culture. Patient is currently on Zosyn Severe sepsispresent on admission Cholecystitispresent on admission UTIgram-negative smith as per urine culturepresent on admission Acute metabolic encephalopathy Hypokalemia Hyponatremia Plan: Continue empiric antibiotics with Zosyn Follow blood culture MRI without choledocholithiasis but redemonstrates calculus cholelithiasis I had multiple conversation with Dr. Young from surgery Patient has so far declined to proceed with cholecystectomy. However, her mental status is unreliable at this time CT head negative for acute pathology Brain MRI pending Waiting to have a discussion with sister and patient at bedside Will keep updating surgery PT/OT while in-house GI/DVT prophylaxis Advance directive full code Discharge Plan: Home Plan to discharge in: 48 Hours
--- NOTE | 2024-11-13 14:51 | RAD REPORT ---
EXAMINATION: MRI BRAIN WITHOUT CONTRAST CLINICAL INDICATION: weakness TECHNIQUE: Multiplanar multisequence MR images of the brain were obtained without intravenous contras t. Unless otherwise specified, incidental findings do not require dedicated imaging follow-up. COMPARISON: 11/13/2024 CT head FINDINGS: INTRACRANIAL: Diffusion-weighted images show no acute or early subacute infarction. There is mild bra in atrophy with mildT2/FLAIR hyperintensities in the periventricular and deep white matter regions, likely representing chronic microvascular ischemic changes. There is no mass effect or midline shift. No abnormal extraaxial fluid collection. VASCULATURE: Normal signal voids in the larger intracranial arteries and dural venous sinuses. SINUSES: The paranasal sinuses and mastoid air cells are predominantly clear. BONE: The marrow signal pattern is within normal limits. IMPRESSION: Negative for acutre CVA or other acute intracranial finding.
[2024-11-14 07:39] LABS: Absolute Lymphocytes (CBC) 0.8 K/uL (0.7-4.9); Hematocrit 37.9 % (36.0-45.0); Hemoglobin 12.9 g/dL (12.0-15.0); MCH 29.7 pg (27.0-35.0); MCHC 33.9 g/dL (32.0-36.0); MCV 87.7 fL (80-100); MPV 11.1 fL (7.6-11.3); Nucleated RBC Absolute Count 0.0 (0-0); Nucleated Red Blood Cells % 0.1 % (0-0); RBC Red Blood Cell Count 4.33 M/uL (3.86-4.86); White Blood Count 14.00 thou/uL (4.3-10.9)
[2024-11-14] MEDS: NA CHLORIDE 0.9% 1,000 ML IV ONE (08:08)
[2024-11-14] MEDS: ACETAMINOPHEN 325 MG TABLET PO PRN (08:33)
[2024-11-14 10:20] LABS: ALT/SGPT 78.0 U/L (13-56); AST/SGOT 139.0 U/L (15-37); Albumin 1.6 g/dL (3.4-5.0); Albumin/Globulin Ratio 0.5 (1.1-1.8); Alkaline Phosphatase 111.0 U/L (45-117); Anion Gap 7.1 mEq/L (5.0-15.0); BUN Blood Urea Nitrogen 20.0 mg/dL (7-18); Globulin 3.4 g/dL (2.3-3.5); Glucose Level 127.0 mg/dL (74-106); Potassium 3.1 mEq/L (3.5-5.1)
--- NOTE | 2024-11-14 11:03 | P.PN ---
Subjective Date of Service: 11/14/24 Chief Complaint: Abdominal pain Subjective: No new changes, Worsening (WBC continues to rise. She is n.p.o. for possible cholecystectomy today) Physical Examination - Vital Signs Temperature: 101.4 F Blood Pressure: 112/56 Pulse: 94 Respirations: 16 Pulse Ox (%): 99 - Physical Exam General: Acute distress HEENT: Atraumatic, Normocephalic Respiratory: Other (Speaking in full sentences) Neurological: Normal speech Assessment And Plan - Plan Assessment Patient is a 69-year-old female previously functional and independent in all her ADLs. She was admitted after she presented with abdominal pain. Workup revealed acute cholecystitis. Patient met criteria for severe sepsis as evidenced by metabolic encephalopathy, lactic acidosis and leukocytosis. She has been experiencing functional decline recently given ongoing illness. She also has gram-negative isolates from her urine culture. Patient is currently on Zosyn Severe sepsispresent on admission Hypotension Acute calculus cholecystitispresent on admission UTIgram-negative smith as per urine culturepresent on admission Acute metabolic encephalopathyCT head negative Hypokalemia Hyponatremia Plan: Will give a liter bolus of normal saline for mild hypotension OR today for cholecystectomy Continue Zosyn for both UTI and cholecystitis Follow blood and urine culture Potassium replacement PT/OT while in-house GI/DVT prophylaxis Advance directive full code Discharge Plan: Home Plan to discharge in: 48 Hours
[2024-11-14 12:12] LABS: Magnesium 2.1 mg/dL (1.6-2.4)
[2024-11-14] MEDS: SUCCINYLCHOLINE 20 MG/ML (10 ML) IV ONE (12:19)
[2024-11-14] MEDS ORDERED: ROCURONIUM 50 MG/5 ML VIAL IV ONE (12:20)
[2024-11-14] MEDS ORDERED: FENTANYL CITR 100 MCG/2 ML ONE (12:20)
[2024-11-14] MEDS: LIDOCAINE HCL/EPINEPHRINE 20 ML MDV ONE (12:50)
[2024-11-14] MEDS ORDERED: ONDANSETRON 4 MG/2 ML VIAL ONE ×2 (12:57→12:58)
--- NOTE | 2024-11-14 12:58 | CON ---
Date of Consultation: 11/12/2024 Brief History Of Present Illness: The patient is a 69-year-old female with no past medical history, who came to the ER with complaints of abdominal pain beginning 1 week prior to her arrival t o the ER. She additionally complains of weakness in her lower extremities for approximately 3 weeks, which made it more difficult for her to ambulate and walk around. She states that there was mostly pain in her back and weakness in her legs. As such, she came to the emergency room with epigastric p ain with some radiation to the right upper quadrant. It was 6/10 on interview by the ER physician by report. During my examination, she states she is completely pain-free and had eaten breakfast at th e time of my interview and was tolerating a soft diet without any complaints of pain. She denied any pain, nausea, vomiting, tenderness, change in bowel or bladder habits. No sick contacts. No recent food exposures. No recent travel by her report. Past Medical History: Negative. Past Surgical History: She denies. Allergies: TO MORPHINE. Social History: She denies smoking, alcohol, recreational drug use. Review of Systems: Ten-point review of systems other than HPI, denies. Physical Examination: General: At the time of my examination, she is awake, alert, and oriented. Psychiatric: Appropriate and conversive. HEENT: She is normocephalic. Sclerae icteric. Mucous membranes are moist. Oropharynx clear. Neck: Supple without JVD. Chest: Normal to expansion and excursion. Cardiovascular: Regular rate and rhythm. Pulmonary: Clear to auscultation bilaterally. Abdomen: Soft, nontender, nondistended. No rebound. No guarding. No focal peritonitis. Negative Owens sign. Extremities: No clubbing, cyanosis, or edema. Skin: Warm and dry. Laboratory Data: Revealed white blood cell count of 13.6, hemoglobin was 12.9, hematocrit of 37.5, p latelet count was 135. Sodium 136, potassium 3.3, chloride 105, carbon dioxide 25, BUN 24, creatinin e 1.1, glucose is 121, calcium 8.0, AST 212, ALT 119, alkaline phosphatase 128, total bilirubin 0.7. She had imaging performed, which included abdominal ultrasound which was officially read as cholelit hiasis with mild wall thickening, although suboptimal distention that limits evaluation. No other fi ndings to suggest acute cholecystitis. There is echogenic shadowing calculi predominantly in the nec k of the gallbladder, wall appears mildly thickened to 4 mm. No pericholecystic fluid. Assessment And Plan: This is a 69-year-old woman, who came to the hospital with abdominal pain, whic h had resolved after being admitted without any significant medication by her report. She was tolera ting diet and feeling well by her report. 1. IV fluid hydration. 2. Antibiotic coverage. 3. I have explained risks, benefits, and alternatives of laparoscopic possible open cholecystectomy w ith indocyanine green cholangiography, possible contrast cholangiography including, but not limited t o bleeding, infection, damage to surrounding tissue, need for further operative procedures, injury to bile ducts, intestines, need for further operations, blood clots, heart attack, strokes, and other u nforeseen complications in the perioperative period. Coach was present during my discussion wi th the patient. 4. I have recommended MRCP prior to discharge to see if there is any pathology of the liver and/or bi liary system that might be contributing to her elevation of her transaminases. I have explained that she should stay in the hospital at least for a day to have a re-evaluation. If she develops abdomin al pain, I have recommended surgical intervention as described above. However, she currently states she does not want any surgical intervention and would only reconsider if her pain was to return and a t this point she feels asymptomatic and does not want to proceed with any surgical intervention despi te her findings as described. Therefore, I will follow along with you and await MRCP results. Continue medical management per Primary Team for weakness. Thank you for this interesting consult. JASBIR/SADE Voice ID: [id number] Report ID: [id number]
[2024-11-14] MEDS: ONDANSETRON 4 MG/2 ML VIAL ONE (13:00)
[2024-11-14] MEDS: Ringers Lactate 1,000 ML IV ONE (13:10)
[2024-11-14] MEDS ORDERED: GLYCOPYRROLATE 0.2 MG/ML SYR ONE ×2 (13:20→13:21)
[2024-11-14] MEDS ORDERED: NEOSTIGMINE 1 MG/ML -10 ML VIAL ONE (13:20)
--- NOTE | 2024-11-14 13:25 | P.OP ---
Preoperative diagnosis: Cholecystitis with Cholelithiasis Postoperative diagnosis: Cholecystitis with Cholelithiasis Primary procedure: Laparoscopic Cholecystectomy with ICG Cholangiography Anesthesia: GETA + Local Estimated blood loss: <5cc Specimen: Gallbladder Findings: thick adhesions over gallbladder, stone impacted @ neck Complications: None Implants: Angle Powder Transferred to: Recovery Room Condition: Good
[2024-11-14] MEDS ORDERED: HYDROCODONE/APAP 5/325 MG TAB PO PRN (13:29)
[2024-11-14] MEDS: HYDROMORPHONE HCL 1 MG/ML INJ ONE (13:49)
[2024-11-14] MEDS: KETOROLAC 30 MG/ML INJ ONE (14:00)
[2024-11-14] MEDS: FENTANYL CITR 100 MCG/2 ML ONE (14:05)
[2024-11-14] MEDS: POTASSIUM CL 40 MEQ in NA CHLORIDE 0.9% 500 ML IV SCH (14:47)
--- NOTE | 2024-11-14 14:53 | OP ---
Date of Procedure: 11/14/2024 Surgeon: Moustapha Young MD, Preoperative Diagnosis: Cholelithiasis with cholecystitis. Postoperative Diagnosis: Cholelithiasis with cholecystitis. Procedure Performed: Laparoscopic cholecystectomy with indocyanine green cholangiography. Anesthesia: General endotracheal plus local 1% lidocaine. Estimated Blood Loss: 5 cc. Specimen: Gallbladder. Findings: Thick adhesions over the gallbladder were noted and a stone impacted in the neck of the ga llbladder. Complications: None. Implants: Hemostatic powder. Disposition: The patient transferred to recovery room in good condition. Procedure In Detail: After informed consent was obtained, patient was brought to the operating room, prepped and draped in the usual sterile fashion. After adequate anesthesia achieved, anesthetized a n area of the supraumbilical position of the subcutaneous tissues. A 5 mm 0-degree optical trocar wa s introduced into the abdomen without incident or complication. Insufflation was obtained to 15 mmHg at this time. There was no injury to vital structures upon entry into the abdomen. Two additional trocar was placed, 1 in the epigastrium, one in the right upper quadrant, both these were 5 mm trocar placed under direct vision without incident or complication. The umbilical trocar was then upsized to 12 mm under direct vision without issue. The patient was then positioned head up right-side up po sition. Ratcheted grasper was used to grasp the patient's gallbladder, placed towards the patient's right shoulder. Dissection continued down to the Nidhi pouch of the gallbladder. Significant adh esions were taken off the anterior surface of the gallbladder to allow exposure the wall of the gallb ladder. There was some inflammatory change in the stone impacted in neck of the gallbladder. At thi s point, dissection continued to the Nidhi pouch of the gallbladder to dissect 2 structures identi fied at both cystic duct and cystic artery, these structures skeletonized and visualized at this poin t. The critical view of safety was obtained at this point. I then performed indocyanine green chola ngiography confirming the anatomic structures as described. At this point, I placed a double titaniu m clips doubly on the proximal side and singly on the distal side of both cystic duct, cystic artery. These structures were then ligated between Endo Connie and the gallbladder was removed from the hep atic fossa and sent off for pathologic examination. There was full duration required to the midporti on of the hepatic fossa as it was a spurting vessel. This was controlled with electrocautery. The a arminda was copiously irrigated until all effluent was completely clear. There was minimal blood loss du ring the procedure. At this point, the effluent being clear up. I positioned the patient back in ne utral position. At this point, I inspected the hepatic fossa which had no additional hemostatic requ ired under desufflation pressure. At this point, I opted to spray Angle hemostatic powder into the subhepatic space in the region of the fulguration. I then placed the omentum in this area. I then s ucked out the remaining effluent. The patient then had the 12 mm trocar site closed using Kyle-Enrique yarely suture passer with an 0 Vicryl uninterrupted fashion with good approximation of tissue. The ab domen was desufflated under direct vision without incident or complication. The remaining trocars we re copiously irrigated and closed with a 4-0 Monocryl in a running fashion. Dermabond placed over to p. The patient tolerated the procedure without incident or complication, transferred in good conditi on. All counts were correct at the end of the case. JASBIR/LINGL Voice ID: [id number] Report ID: [id number]
[2024-11-14] MEDS: POTASSIUM PHOS IN 0.9 % NACL 15 MMOL/250 ML BAG IV ONE (16:50)
--- NOTE | 2024-11-14 20:44 | CON ---
Date of Consultation: 11/13/2024 Reason For Consultation: Upper abdominal pain with cholelithiasis. History Of Present Illness: The patient is a 69-year-old female without significant past me dical history, who came in the hospital with midepigastric pain radiating to right upper quadrant, 6/ 10, associated with some nausea, vomiting, diarrhea and subjective fever. The patient had imaging st udies including MRCP, which revealed gallstones in the gallbladder. Past Medical History: Insignificant. Past Surgical History: No past surgical history. Medications: No medications. Allergies: REPORTED ALLERGIES TO MORPHINE. Social History: She is a . No children. No tobacco. No alcohol. Family History: Father of old age. Mother of old age as well. As far as she knows she re ports. Review of Systems: The patient had midepigastric and right upper quadrant pain associated with nausea, vomiting, some lo ose stools, diarrhea. No melena, hematochezia, hematemesis, coffee-ground emesis, hematuria, dysuria , polyuria, polydipsia, chest pain, shortness of breath, seizure, syncope, muscle aches, joint aches, backaches, depression, anxiety. Physical Examination: Vital Signs: She is 4 feet 11 inches, 139 pounds, BMI 28.1 kg/sq m. She has a temperature of 97.5 d egrees Fahrenheit, pulse 81-104, respirations 20, blood pressure 102/49, O2 saturation 96% on room ai r. HEENT: Normocephalic, atraumatic. Anicteric. Pupils equal, round, and reactive to light. Extraocu lar movements are intact. Oropharynx clear. Neck: Supple. No masses. Respirations: Good air movement. Cardiac: Good pulses. Regular rate and rhythm. Abdominal: Soft, nondistended. Some mild tenderness in the midepigastric area possibly. The patien t had minimal pain. No rebound. No guarding. No peritoneal signs. Extremities: No clubbing, cyanosis, or edema. 2+ pulses. Neuro: Alert and oriented x3. Grossly nonfocal. 5/5 motor strength. Sensation intact to light cristopher ch. Data: The patient had a white count of 13.6 yesterday, hemoglobin of 12.5, hematocrit of 37, MCV of 89, platelet count 122, polys 94%, lymphocytes 4%, monocytes 2%. PT of 13.9, INR of 1.2, PTT 26.2. Sodium 140, potassium 3.4, chloride 111, bicarb 22, BUN 21, creatinine 0.94, glucose 101. Calcium is 7.3, phosphorus 1.6, magnesium 2.3. Total bilirubin 0.7, AST of 128, ALT of 100, alkaline phosphata se 129, total protein 5.9, albumin 1.9, lipase 75, normal. UA, 1+ ketones, 3+ blood, [address]ase, 21-50 rbc's, 10-20 , 5-10 squamous epithelial cells, less than 20 bacteria, 3+ mucu s, few yeast, 1+ total protein. [place] screen negative. COVID-19 negative. Ultrasound abdomen reveal s gallbladder somewhat decompressed, echogenic shadowing calculi predominantly in the neck, wall appe ars mildly thickened, 4 mm in thickness. No pericholecystic fluid noted. No sonographic Owens sign noted. MRCP revealed gallstones in gallbladder. No biliary gallstones noted. Impression: Cholelithiasis and cholecystitis. Ultrasound of abdomen reveals gallstones in gallbladd er and gallbladder wall thickening though minimal. MRCP revealed no stones in the biliary tree. The patient at this time refuses all invasive procedures as per Surgery and if the patient changes mind, we will proceed with laparoscopic cholecystectomy. Recommendation: 1. Continue IV fluids, IV antibiotics, p.r.n. pain medicines. Await further input from family since the patient has possible early onset dementia, it appears. 2. Call if needed. RUDI/SADE Voice ID: [id number] Report ID: [id number]
[2024-11-15 04:57] LABS: Absolute Lymphocytes (CBC) 1.2 K/uL (0.7-4.9); Hematocrit 33.3 % (36.0-45.0); Hemoglobin 11.4 g/dL (12.0-15.0); MCH 30.3 pg (27.0-35.0); MCHC 34.1 g/dL (32.0-36.0); MCV 89.1 fL (80-100); MPV 11.4 fL (7.6-11.3); Nucleated RBC Absolute Count 0.0 (0-0); Nucleated Red Blood Cells % 0.1 % (0-0); RBC Red Blood Cell Count 3.74 M/uL (3.86-4.86); White Blood Count 13.40 thou/uL (4.3-10.9)
[2024-11-15 05:34] LABS: ALT/SGPT 101.0 U/L (13-56); AST/SGOT 158.0 U/L (15-37); Albumin 1.7 g/dL (3.4-5.0); Albumin/Globulin Ratio 0.4 (1.1-1.8); Alkaline Phosphatase 110.0 U/L (45-117); Anion Gap 8.3 mEq/L (5.0-15.0); BUN Blood Urea Nitrogen 22.0 mg/dL (7-18); Globulin 3.9 g/dL (2.3-3.5); Glucose Level 129.0 mg/dL (74-106); Potassium 4.3 mEq/L (3.5-5.1)
--- NOTE | 2024-11-15 09:47 | RAD REPORT ---
EXAMINATION: CT LUMBAR SPINE WITHOUT CONTRAST CLINICAL INDICATION: Female, 69 years old. Back pain TECHNIQUE: Axial CT images were obtained through the lumbar spine in soft tissue and bone windows wit hout intravenous contrast. Coronal and Sagittal reformatted images were created from the data set. One or more of the following dose reduction techniques were used: Automated exposure control, adjustm ent of the mA and/ or kV according to patient size, and/or iterative reconstruction. Unless otherwise specified, incidental findings do not require dedicated imaging follow-up. COMPARISON: No prior exam. FINDINGS: For purposes of this dictation, it is assumed that there are 5 non rib-bearing lumbar type vertebrae, and lumbarization of S1 vertebral body ALIGNMENT: The lumbar spine demonstrates normal alignment without scoliosis or spondylolisthesis. BONES: Vertebral body heights are preserved. No acute fracture. Well-corticated irregularity along th e right L1 transverse process, suggestive of sequela of remote trauma. No aggressive osseous lesions. DISCS: Intervertebral disc space heights are maintained. LEVELS: Broad-based posterior disc bulge at S1-2 with central zone and nebulization. Mild to moderate facet arthropathy contributing to bilateral moderate neural foraminal narrowing. Mild facet degenerative changes also noted at L5-S1, without significant canal or foraminal stenosis. No other s ignificant spinal canal or neural foraminal stenosis. No visualized abnormality within the spinal canal. SOFT TISSUE: No soft tissue abnormalities. Trace layering right pleural effusion. IMPRESSION: No acute lumbar spine abnormalities. Degenerative changes as above. Trace layering right pleural effusion.
--- NOTE | 2024-11-15 10:41 | P.PN ---
Subjective Date of Service: 11/15/24 Chief Complaint: Abdominal pain Subjective: Improving (Postop day #1 status postcholecystectomy. She is stable from a medical standpoint. Her abdominal exam is benign. She is very weak and uncoordinated. CT of lumbar spine unremarkable. She will need continued therapy, possibly SNF referral) Physical Examination - Vital Signs Temperature: 97.6 F Blood Pressure: 108/56 Pulse: 73 Respirations: 18 Pulse Ox (%): 94 - Physical Exam General: In no apparent distress, Cooperative HEENT: Atraumatic, Normocephalic Respiratory: Clear to auscultation bilaterally, Normal air movement Cardiovascular: No edema, Regular rate/rhythm, Normal S1 S2 - Studies Microbiology Data (last 24 hrs): 11/11/24 17:31 Clean Catch Urine [place] Count - Final 11/11/24 17:31 Clean Catch Urine - Final Escherichia Coli Assessment And Plan - Plan Assessment Patient is a 69-year-old female previously functional and independent in all her ADLs. She was admitted after she presented with abdominal pain. Workup revealed acute cholecystitis. Patient met criteria for severe sepsis as evidenced by metabolic encephalopathy, lactic acidosis and leukocytosis. She has been experiencing functional decline recently given ongoing illness. She also has gram-negative isolates from her urine culture. Patient is currently on Zosyn Severe sepsispresent on admission Hypotension Acute calculus cholecystitispresent on admission E. coli/Proteus mirabilis UTIpresent on admission. Acute metabolic encephalopathyCT head negative Hypokalemia Hyponatremia Plan: Postop day #1 status post laparoscopic cholecystectomy Still has some elevated WBC appears medically and surgically stable She will need continued physical therapy possibly SNF referral Social service consult Continue Zosyn for both UTI and cholecystitis Follow blood cultures GI/DVT prophylaxis Advance directive full code Discharge Plan: Home Plan to discharge in: 48 Hours
[2024-11-15] MEDS: DIPHENHYDRAMINE 50 MG/ML VIAL IV ONE (17:52)
[2024-11-15] MEDS: METRONIDAZOLE 500mg IVPB 500 MG/100 ML BAG IV SCH (17:52)
[2024-11-15] MEDS: CIPROFLOXACIN 400mg IV 400 MG/200 ML BAG IV SCH (17:52)
[2024-11-15] MEDS: CHLORASEPTIC LOZENGES PO PRN (19:42)
[2024-11-16 06:06] LABS: Absolute Lymphocytes (CBC) 1.7 K/uL (0.7-4.9); Hematocrit 32.0 % (36.0-45.0); Hemoglobin 10.8 g/dL (12.0-15.0); MCH 29.9 pg (27.0-35.0); MCHC 33.8 g/dL (32.0-36.0); MCV 88.4 fL (80-100); MPV 10.7 fL (7.6-11.3); Nucleated RBC Absolute Count 0.0 (0-0); Nucleated Red Blood Cells % 0.1 % (0-0); RBC Red Blood Cell Count 3.62 M/uL (3.86-4.86); White Blood Count 11.40 thou/uL (4.3-10.9)
[2024-11-16 06:25] LABS: ALT/SGPT 122.0 U/L (13-56); AST/SGOT 195.0 U/L (15-37); Albumin 1.7 g/dL (3.4-5.0); Albumin/Globulin Ratio 0.5 (1.1-1.8); Alkaline Phosphatase 113.0 U/L (45-117); Anion Gap 6.6 mEq/L (5.0-15.0); BUN Blood Urea Nitrogen 15.0 mg/dL (7-18); Globulin 3.6 g/dL (2.3-3.5); Glucose Level 93.0 mg/dL (74-106); Potassium 3.6 mEq/L (3.5-5.1)
--- NOTE | 2024-11-16 07:55 | P.PN ---
Date of Service: 11/16/24 Subjective: improving still having weakness in legs planning on SNF, possibly tomorrow Physical Exam: GEN: Alert, oriented, NAD CV: Regular rate and rhythm, no edema Pulm: Nonlabored respirations on room air, clear bilaterally ABD: soft, tender, surgical dressing in place Neuro: Normal speech, normal affect Problem List: Severe sepsis secondary to acute calculus cholecystitis, s/p lap rodolfo with ICG cholangiography (11/14) UTI - Multiple organisms Hypokalemia Hyponatremia Severe sepsis secondary to acute calculus cholecystitis, s/p lap rodolfo with ICG cholangiography (11/14) on admission, presents with worsening RUQ/epigastric pain, nausea, vomiting associated with subjective fever. Seen in ER on the , Given 10 day prescription of augmentin but symptoms worsened so she came back. CT/MRI brain were negative for any acute findings. MRCP 11/12: Cholelithiasis without pathologic biliary tree abnormality Dr. Young, general surgeon is following s/p lap rodolfo with ICG cholangiography (11/14) Diet/Wound care per surgery Zosyn (11/12-11/15) switched to IV Cipro/Flagyl 11/15 - due to possibly allergy to zosyn -reports state rash occurred Continue empiric Cipro/Flagyl (11/15-) Blood cx: NGTD pain control monitor LFTs; AST/ALT slightly worse UTI - Multiple organisms Urine cx: E. coli and Proteus mirabilis. Susceptible to Zosyn/Cipro previously on Zosyn (11/12-11/15) Continue Cipro/Flagyl (11/15-) afebrile, leukocytosis improving Hypokalemia, improved Hyponatremia, improved Monitor and replete electrolytes as needed s/p IVF VTE: Code: Full Dispo: SNF, anticipate tomorrow Pending LFTs improve, pain improves, tolerating diet Time Spent Managing Pts Care (In Minutes): 45
[2024-11-16] MEDS: POTASSIUM CL SA 10 MEQ TAB PO ONE (08:53)
--- NOTE | 2024-11-16 11:44 | P.PN ---
Subjective Date of Service: 11/16/24 Chief Complaint: Abdominal pain Subjective: Improving (Patient states she has no pain currently however she has pulled her epigastric incision apart.) Physical Examination - Vital Signs Temperature: 97.9 F Blood Pressure: 94/48 Pulse: 77 Respirations: 16 Pulse Ox (%): 98 - Physical Exam General: Alert, In no apparent distress, Cooperative HEENT: Mucous membr. moist/pink Respiratory: Clear to auscultation bilaterally Gastrointestinal: Other (Soft to mild appropriate tenderness to palpation no rebound no guarding no peritonitis, supraumbilical incision has been pulled apart open with good clean granulation tissue evident. No infection) - Studies Microbiology Data (last 24 hrs): 11/11/24 17:31 Clean Catch Urine [place] Count - Final 11/11/24 17:31 Clean Catch Urine - Final Escherichia Coli Proteus Mirabilis Assessment And Plan - Plan Patient is a 69-year-old woman who presents status post laparoscopic cholecystectomy with indocyanine green cholangiography. -Recommend GI consultation for transaminitis, can be outpatient - Continue postop recommendations per my previous report. - Iodoform packing to incisions daily.
[2024-11-16] MEDS: PNEUMOCOCCAL VACCINE 0.5 ML IMVAC ONE (12:33)
[2024-11-16] MEDS: PANTOPRAZOLE 40MG TABLET PO ONE (12:34)
[2024-11-17 04:39] LABS: Hematocrit 30.9 % (36.0-45.0); Hemoglobin 11.0 g/dL (12.0-15.0); MCH 31.0 pg (27.0-35.0); MCHC 35.5 g/dL (32.0-36.0); MCV 87.2 fL (80-100); MPV 9.8 fL (7.6-11.3); RBC Red Blood Cell Count 3.54 M/uL (3.86-4.86); White Blood Count 8.10 thou/uL (4.3-10.9)
[2024-11-17 04:55] LABS: ALT/SGPT 122.0 U/L (13-56); AST/SGOT 138.0 U/L (15-37); Albumin 1.7 g/dL (3.4-5.0); Albumin/Globulin Ratio 0.4 (1.1-1.8); Alkaline Phosphatase 107.0 U/L (45-117); Anion Gap 7.7 mEq/L (5.0-15.0); BUN Blood Urea Nitrogen 10.0 mg/dL (7-18); Globulin 4.0 g/dL (2.3-3.5); Glucose Level 104.0 mg/dL (74-106); Potassium 3.7 mEq/L (3.5-5.1)
[2024-11-17] MEDS ORDERED: PANTOPRAZOLE 40MG TABLET PO SCH (06:30)
[2024-11-17] MEDS: POTASSIUM 25 MEQ EFFERV TAB PO ONE (08:54)
[2024-11-17] MEDS: PANTOPRAZOLE 40MG TABLET PO SCH (08:55)
[2024-11-17 10:25] VITALS: O2SAT 98
--- NOTE | 2024-11-17 15:33 | P.DS ---
Admission Date: 11/11/24 Discharge Date: 11/17/24 Disposition: TRANSFER TO CORRECTION Discharge Condition: GOOD Reason for Admission: Abdominal pain Consultations: surgery Procedures: s/p lap rodolfo with ICG cholangiography (11/14) Brief History of Present Illness: 69 yrs old Female with no significant past medical history came to ER with abdominal pain started 1 week ago. Complains of pain in the epigastric region and also radiating to right upper quadrant, sharp pain, 6 out of 10 in severity at the time of interview. Associated with diarrhea body pain nausea and vomitin g. Patient also had subjective fever. Patient was initially seen in the ER and was treated with Augmentin but was not improving and was brought to ER again. Patient was assessed in the ER and was found to have elevated LFTs and was admitted for further management of cholelithiasis and acute cholecystitis Hospital Course: Severe sepsis secondary to acute calculus cholecystitis, s/p lap rodolfo with ICG cholangiography (11/14) UTI - Multiple organisms Hypokalemia Hyponatremia Severe sepsis secondary to acute calculus cholecystitis, s/p lap rodolfo with ICG cholangiography (11/14) on admission, presents with worsening RUQ/epigastric pain, nausea, vomiting associated with subjective fever. Seen in ER on the , Given 10 day prescription of augmentin but symptoms worsened so she came back. CT/MRI brain were negative for any acute findings. MRCP 11/12: Cholelithiasis without pathologic biliary tree abnormality Dr. Young, general surgeon is following s/p lap rodolfo with ICG cholangiography (11/14) Diet/Wound care per surgery Zosyn (11/12-11/15) switched to IV Cipro/Flagyl 11/15 - due to possibly allergy to zosyn -reports state rash occurred Continue empiric Cipro/Flagyl (11/15-) Blood cx: NGTD pain control monitor LFTs; AST/ALT slightly worse UTI - Multiple organisms Urine cx: E. coli and Proteus mirabilis. Susceptible to Zosyn/Cipro previously on Zosyn (11/12-11/15) Continue Cipro/Flagyl (11/15-) afebrile, leukocytosis improved discharged with oral cipro Hypokalemia, improved Hyponatremia, improved Monitored and replete delectrolytes as needed s/p IVF dc to SNF Vital Signs/Physical Exam: Temp Pulse Resp BP Pulse Ox 98.3 F 77 18 128/60 98 11/17/24 12:00 11/17/24 12:00 11/17/24 12:00 11/17/24 12:00 11/17/24 12:00 General: Alert, Oriented x3 HEENT: Atraumatic, Normocephalic Respiratory: Clear to auscultation bilaterally, Normal air movement Cardiovascular: Normal pulses, Regular rate/rhythm Gastrointestinal: Soft and benign Laboratory Data at Discharge: WBC 8.10 thou/uL (4.3-10.9) 11/17/24 04:05 Hgb 11.0 g/dL (12.0-15.0) L 11/17/24 04:05 Hct 30.9 % (36.0-45.0) L 11/17/24 04:05 Plt Count 227 thou/uL (152-406) 11/17/24 04:05 PT 13.9 SECONDS (10-13.0) H 11/11/24 17:45 INR 1.24 11/11/24 17:45 APTT 26.2 SECONDS (27.2-37.4) L 11/11/24 17:45 Sodium 143 mEq/L (136-145) 11/17/24 04:05 Potassium 3.7 mEq/L (3.5-5.1) 11/17/24 04:05 BUN 10 mg/dL (7-18) 11/17/24 04:05 Creatinine 0.62 mg/dL (0.55-1.02) 11/17/24 04:05 Glucose 104 mg/dL (74-106) 11/17/24 04:05 Phosphorus 2.7 mg/dL (2.5-4.9) 11/15/24 04:02 Magnesium 2.1 mg/dL (1.6-2.4) 11/14/24 09:25 Total Bilirubin 0.6 mg/dL (0.2-1.0) 11/17/24 04:05 AST 138 U/L (15-37) H 11/17/24 04:05 ALT 122 U/L (13-56) H 11/17/24 04:05 Alkaline Phosphatase 107 U/L (45-117) 11/17/24 04:05 Lipase 75 U/L (13-75) 11/11/24 15:24 Home Medications: Acetaminophen [Tylenol*] 650 mg PO Q4HP PRN tab 11/17/24 Ciprofloxacin HCl [Cipro 500 MG Tablet] 500 mg PO BID #6 tab 11/17/24 traMADol HCL [Ultram*] 50 mg PO Q6H PRN #9 tab 11/17/24 New Medications: traMADol HCL [Ultram*] 50 mg PO Q6H PRN #9 tab PRN Reason: Pain Diet: [place] Activity: No lifting more than 10 lbs Followup: Moustapha Young MD [ACTIVE - CAN ADMIT] - NONE,NONE [Primary Care Provider] -
[2024-11-17 16:42] VITALS: BP 118/52; TEMP 98
== END 2024-11-17 17:15 | DRG 853 ==
LOC: ER 14:52 → ERHOLD 18:30 → 4TH 19:42
PROVIDERS: ADMIT Family Medicine; ATTEND Internal Medicine
PROC: BF52200 Other Imaging of Gallbladder using Fluorescing Agent, Indocyanine Green Dye, Intraoperative (ICD-10-PCS; 2024-11-14)
PROC: 0FT44ZZ Resection of Gallbladder, Percutaneous Endoscopic Approach (ICD-10-PCS; principal; 2024-11-14 12:00)
PROC: 009U3ZX Drainage of Spinal Canal, Percutaneous Approach, Diagnostic (ICD-10-PCS; 2024-11-15)
DX: A41.9 Sepsis, unspecified organism (principal); G93.41 Metabolic encephalopathy; E87.1 Hypo-osmolality and hyponatremia; K80.00 Calculus of gallbladder with acute cholecystitis without obstruction; E87.20 Acidosis, unspecified; N17.9 Acute kidney failure, unspecified; N39.0 Urinary tract infection, site not specified; E87.6 Hypokalemia; L27.0 Generalized skin eruption due to drugs and medicaments taken internally; T36.0X5A Adverse effect of penicillins, initial encounter; B96.4 Proteus (mirabilis) (morganii) as the cause of diseases classified elsewhere; B96.20 Unspecified Escherichia coli [E. coli] as the cause of diseases classified elsewhere; R65.20 Severe sepsis without septic shock; R94.5 Abnormal results of liver function studies; R74.01 Elevation of levels of liver transaminase levels; Z23 Encounter for immunization; Z88.5 Allergy status to narcotic agent; Z88.1 Allergy status to other antibiotic agents; Z11.52 Encounter for screening for COVID-19
CPT/HCPCS: 36415; 70450; 70551; 72131; 74181; 76705; 80053; 81001; 83605; 83690; 83735; 84100; 85025; 85027; 85610; 85730; 86308; 87040; 87070; 87077; 87086; 87088; 87186; 87426; 88304; 90471; 90732; 94760; 96361; 96365; 96375; 97116; 97161; 99284; J0330; J0744; J1100; J1171; J1200; J2405; J2543; J2704; J2710; J3010; J3480; J7030; J7040; J7120